=== PATIENT | male | born 1985 | race American Indian/Alaskan Native ===

== ENCOUNTER 2017-08-07 02:52 | Emergency (ER) | payer OTHER ==
[2017-08-07 08:58] VITALS: BP 122/64
[2017-08-07] MEDS ORDERED: DELTASONE PO ONE (09:56)
[2017-08-07] MEDS ORDERED: TYLENOL PO ONE (09:57)
--- NOTE | 2017-08-07 10:05 | Emergency Department Report ---
HPI - General Chief Complaint: Pain General Time Seen by Provider: 08/07/17 09:12 - HPI HPI: 32-year-old male who presents to ED complaining of generalized body ache, sore throat and cold sweats 2 days. Patient states she days ago he feel his throat was a bit achy and started taken some TheraFlu. Patient states yesterday he got some body aches sweating. Patient states he has [place] been [place] sick [place] the country [place]. He denies taking any medications or allergies to any medications. Patient states that this a bit better today just a bit achy and is able to eat food and drink weights without any problems ED Past Medical Hx - Past Medical History Previous Medical History?: No - Surgical History Past Surgical History?: No - Social History Smoking Status: Current Every Day Smoker Substance Use Type: None - Medications Home Medications: Home Medications Medication Instructions Recorded Confirmed Last Taken Type D-Methorphan/PE/Acetaminophen 1 each PO Q8H #21 tablet 08/07/17 Unknown Rx [Tylenol Cold Max Day Caplet] Ibuprofen [Motrin] 800 mg PO Q8HR PRN #30 tablet 08/07/17 Unknown Rx ED Review of Systems ROS: Stated complaint: FLU SYMPTOMS Other details as noted in HPI Constitutional: denies: chills, fever Eyes: denies: eye pain, eye discharge, vision change ENT: throat pain. denies: ear pain, dental pain, congestion Respiratory: denies: cough, shortness of breath, wheezing Cardiovascular: denies: chest pain, palpitations Endocrine: no symptoms reported Gastrointestinal: denies: abdominal pain, nausea, vomiting, diarrhea Genitourinary: denies: urgency, dysuria, frequency, hematuria Musculoskeletal: denies: back pain, joint swelling, arthralgia Skin: denies: rash, lesions Neurological: denies: headache, weakness, paresthesias Psychiatric: denies: anxiety, depression Hematological/Lymphatic: denies: easy bleeding, easy bruising Physical Exam - Physical Exam Vital Signs: Vital Signs 08/07/17 08/07/17 03:01 08:57 Temperature 99.9 F H 99.0 F Pulse Rate 96 H 90 Respiratory 18 20 Rate Blood Pressure 126/78 Blood Pressure 122/64 [Left] O2 Sat by Pulse 98 99 Oximetry Physical Exam: GENERAL: Alert and oriented x3, no apparent distress, Normal Gait, atraumatic. HEAD: Head is normocephalic and a-traumatic. EYES: Extra ocular muscles are intact. Pupils are equal, round, and reactive to light and accommodation. EARS: symetrical, atraumatic, non tender, ear canal clear and moderate cerumen, tympanic membrance non inflamed. gross auditory nml bilaterally. NOSE: Nose symetrical, Nontender,Nares appeared normal. MOUTH:Mouth is well hydrated and without lesions. Tonsils nonerythematous or swollen, Uvula midline, Tongue not elevated. Mucous membranes are moist. Posterior pharynx clear, no exudate or lesions. Patent airways. NECK: Supple. Non edematous, No lymphadenopathy LUNGS: Symetrical with respiration, No wheezing, no rales or crackles, CTAB. HEART: S1, S2 present, regular rate and rhythm without murmur, no rubs, no gallops. Non tender to palpation EXTREMITIES/MUSCULOSKELETAL: No cyanosis, clubbing, rash, lesions or edema. Full ROM bilaterally. UE/LE Pulses 2+ bilaterally. NEUROLOGIC: The patient is cooperative with no focal neurologic deficits. Normal speech. Normal sensation in bilateral upper and lower extremities, No loss of sensation, SKIN: Warm and dry, No lesions, No ulceration or induration present. ED Course Vital Signs 08/07/17 08/07/17 03:01 08:57 Temperature 99.9 F H 99.0 F Pulse Rate 96 H 90 Respiratory 18 20 Rate Blood Pressure 126/78 Blood Pressure 122/64 [Left] O2 Sat by Pulse 98 99 Oximetry ED Medical Decision Making - Medical Decision Making 32-year-old female Presents with cold symptoms ED course: Patient received some anti-inflammatory and prednisone ED I discussed this patient has symptoms resolve on its own symptoms may last up to 7-14 days. I discussed the patient take symptomatic relief and continues TheraFlu and over- the-counter symptomatic relief. I discussed the patient to follow up with primary care physician. Signs normalized patient is in no acute or respiratory distress He states he understands instructions given. Critical care attestation.: If time is entered above; I have spent that time in minutes in the direct care of this critically ill patient, excluding procedure time. ED Disposition Clinical Impression: Cold, Viral syndrome Disposition: DC-01 TO HOME OR SELFCARE Is pt being admited?: No Does the pt Need Aspirin: No Condition: Stable Instructions: Pharyngitis (ED), Viral Syndrome (ED) Additional Instructions: Make sure to follow up with the primary care physician as discussed. Take all your medications as you've been prescribed. If you have any worsening symptoms or develop new symptoms please return to ED immediately. Prescriptions: D-Methorphan/PE/Acetaminophen [Tylenol Cold Max Day Caplet] 1 each PO Q8H #21 tablet Ibuprofen [Motrin] 800 mg PO Q8HR PRN #30 tablet PRN Reason: Pain Referrals: PRIMARY CARE, [Primary Care Provider] - 3-5 Days [facility] [Outside] - 3-[address] [facility] [Outside] - 3-5 Days [facility] [Outside] - 3-5 Days Forms: Accompanied Note, Work/School Release Form(ED) Time of Disposition: 10:18
== END 2017-08-07 10:24 | disposition home or self-care (01) ==
LOC: ED 02:52
DX: B34.9 Viral infection, unspecified (principal); F17.200 Nicotine dependence, unspecified, uncomplicated
CPT/HCPCS: 99282; J7512